=== PATIENT | male | born 1975 | race Caucasian/White ===

== ENCOUNTER 2018-05-09 19:35 | Emergency (ER) | payer OTHER ==
[2018-05-09] MEDS: DIAZEPAM 5 MG/ML SYG IV (20:31)
[2018-05-09] MEDS: morphine 10 MG INJ IV (21:35)
[2018-05-09] MEDS: KETOROLAC 30 MG INJ IV (22:46)
== END 2018-05-09 23:26 | disposition home or self-care (01) ==
LOC: E/R 19:35
DX: R53.1 Weakness (principal); R51 Headache; Z87.891 Personal history of nicotine dependence
CPT/HCPCS: 73562; 93971; 99284-25